=== PATIENT | female | born 1960 | race Caucasian/White ===

== ENCOUNTER 2023-08-27 09:13 | Emergency (ER) | payer BC, SELFPAY ==
--- NOTE | ~2023-08-27 | XR_ITS ---
EXAMINATION: XR KNEE, LEFT CLINICAL INFORMATION: Left knee pain. COMPARISON: None available. TECHNIQUE: Four views of the left knee. FINDINGS: Alignment is anatomic. Mild medial tibiofemoral cartilage space loss. Mild patellofemoral cartilage space loss. There are marginal osteophytes. No displaced fracture. There surgical clips in the posterior medial soft tissues. Moderate suprapatellar joint effusion. XR/XR knee LT 4V IMPRESSION: Mild osteoarthritis of the left knee. Moderate suprapatellar joint effusion.
[2023-08-27 09:17] VITALS: BP 166/50; PULSE 69; RESP 20; TEMP 35.8; O2SAT 100; BMI 36.0
--- NOTE | 2023-08-27 11:20 | ED_ITS ---
HPI - Extremity Injury (Lower) General Chief Complaint: Extremity Injury, Lower Stated Complaint: fall 08/25, knee pain Time Seen by Provider: 08/27/23 10:11 Source: patient, family and RN notes reviewed Mode of arrival: ambulatory Limitations: no limitations History of Present Illness ED Provider: Reyna Scott PA-C HPI Narrative: This is a 63-year-old female who presents emergency department with complaints of left knee pain status post mechanical fall which occurred yesterday. Patient states that while she was outside for of her dogs ran into her and she ultimately fell landing directly onto her knee. She denies hitting her head or loss of consciousness. She felt well prior to the fall. She has been able to put weight on her left knee. She has been taking ibuprofen, icing, elevating with some relief. Denies history of injury to her left knee in the past. No other complaints or concerns at this time. MD complaint: knee injury Onset (ago): day(s) Relieving factors: nothing Exacerbating factors: nothing Context: fall and direct blow Other symptoms: none Related Data Previous Rx's ?Medication ?Instructions ?Recorded acetaminophen 500 mg tablet 500 mg PO Q6H PRN pain #30 tabs 08/27/23 (Tylenol Extra Strength) ibuprofen 600 mg tablet 600 mg PO Q6H PRN pain #30 tabs 08/27/23 Allergies Allergy/AdvReac Type Severity Reaction Status Date / Time No Known Allergies Allergy Verified 08/27/23 09:21 Review of Systems Review of Systems: Yes all other systems are reviewed and are negative Constitutional: Constitutional: Reports as per [facility] Social History Social History Smoked in Last 30 Days: No Use of substances other than those prescribed or required for medical reasons: No Advance Directives: No Advance Directives Information Provided: No Do you have a plan to hurt others: No Plan Physical Exam Vital Signs: Vital Signs: Last Vital Signs Temp 98.0 F 08/27/23 12:53 Pulse 69 08/27/23 12:53 Resp 16 08/27/23 12:53 BP 126/45 L 08/27/23 12:53 Pulse Ox 96 08/27/23 12:53 O2 Del Method Room Air 08/27/23 12:53 BMI result Body Mass Index 36.0 Const: General: cooperative, comfortable and no acute distress Orientation/consciousness: patient oriented x3 Limitations: no limitations HEENT: Head: Yes normal to inspection, Yes normocephalic and Yes atraumatic Ears: hearing grossly normal bilaterally General nose exam: Normal external nose present Face and sinus: Yes normal facial exam Mouth: Normal oral and palatal mucosa present, oropharynx normal and moist mucous membranes Throat: Yes posterior oropharynx normal Eyes: General: appearance normal, both eyes and all related structures Eyelids: Yes eyelids normal Conjunctivae: conjunctivae normal Sclerae: sclerae normal Pupils: Equal, round and reactive pupils present EOM: EOMs intact bilaterally Neck: Neck: Yes normal visual inspection, Yes full ROM and Yes no lymphadenopathy Lymphatic: no lymphadenopathy noted Chest: Chest palpation & inspection: normal inspection of the chest Resp: Effort & Inspection: normal respiratory effort and able to speak in complete sentences Auscultation: clear to auscultation bilaterally, no crackles, no rales, no rhonchi and no wheezes Cardio: Rate: regular rate Rhythm: regular rhythm Heart sounds: S1 normal heart sound present and S2 normal heart sound present GI: Inspection: Yes normal to inspection Skin: General skin exam: no rashes or lesions noted Trauma: no lacerations or abrasions Wounds: no wounds Neuro: General: patient oriented x3 and moves all extremities Cranial nerves: Yes Equal, round and reactive pupils present Extrem: Other: Left knee, with tenderness palpation along the lateral joint line. With diffuse edema noted, range of motion is intact however with pain elicited. Negative anterior-posterior drawer, pain with valgus strain. Calf nontender. Strong DP pulse General: Yes normal to inspection Right upper extremity: normal to inspection Left upper extremity: normal to inspection Right lower extremity: normal to inspection Left lower extremity: normal to inspection Course Reevaluation(s) Reevaluation #1: X-ray revealing moderate joint effusion as well as arthritis, no bony abnormality. Placed in Dain wrap, and given crutches. Also given orthopedic referral. Given return precautions. Patient understands agrees with plan, discharged on ibuprofen and Tylenol. Stable for discharge Time: 12:44 Medical Decision Making Medical Decision Making MDM Narrative: This is a 63-year-old female who presents emergency department with complaints of left knee pain status post mechanical fall which occurred yesterday. On arrival, vital signs within normal limits. There has no head strike or LOC. Patient has tenderness palpation along the lateral joint line. Full range of motion. Differential diagnoses include fracture, contusion, sprain, strain. Differential Diagnosis Differential Diagnoses: The differential diagnosis associated with the presentation includes See above Radiology Impression Discussion of test interpretation with radiology: I have reviewed the radiologist's reading. Radiologist Impression: [address] [address] XRay Report Signed Patient: Karla Cruz MR#: [id number] : 1960 Acct:[id number] Age/Sex: 63 / F ADM Date: 08/27/23 Loc: HO.ED Attending Dr: Ordering Physician: Fiorella Allred DO Date of Service: 08/27/23 Procedure(s): XR knee LT 4V Accession Number(s): [id number] cc: Fiorella Allred DO; Balwinder New MD~ EXAMINATION: XR KNEE, LEFT CLINICAL INFORMATION: Left knee pain. COMPARISON: None available. TECHNIQUE: Four views of the left knee. FINDINGS: Alignment is anatomic. Mild medial tibiofemoral cartilage space loss. Mild patellofemoral cartilage space loss. There are marginal osteophytes. No displaced fracture. There surgical clips in the posterior medial soft tissues. Moderate suprapatellar joint effusion. XR/XR knee LT 4V IMPRESSION: Mild osteoarthritis of the left knee. Moderate suprapatellar joint effusion. Dictated By: Carol Ann Umanzor MD Procedures Orthopedic Splinting/Casting Injury #1: Side: left Upper Extremity Immobilizer: Dain wrap Lower Extremity Injury Location: knee Other Orthopedic Equipment: crutches Discharge Plan Discharge Clinical Impression: Contusion of knee, left Patient Disposition: Home, Self-Care Instructions: Contusion in Adults (ED), R.I.C.E. Treatment (ED) Additional Instructions: You were seen in the emergency department after injuring her left knee. Your x-ray shows mild arthritis as well as a joint effusion, which is swelling. You have no broken bones. Please rest, ice, elevate, and use Dain wrap. You may also use crutches or a cane as needed to offset the pressure you apply on your leg with walking. Watch for any new or worsening symptoms including but not limited to fevers, chills, increased redness, swelling, inability to bend your knee, if any of these occur, please return for re-evaluation. Follow-up with Orthopedics, call to make an appointment. You may also follow-up with your primary care physician visit. Prescriptions: New ibuprofen 600 mg tablet 600 mg PO Q6H PRN (Reason: pain) Qty: 30 0RF acetaminophen [Tylenol Extra Strength] 500 mg tablet 500 mg PO Q6H PRN (Reason: pain) Qty: 30 0RF Referrals: [facility] [place] [facility] [Provider Group] Interventions: ED Discharge Assessment Last Done: 08/27/23 12:53 Discharge Date/Time: 08/27/23 12:56 Print Language: Yakut
[2023-08-27 11:34] VITALS: BP 126/45; PULSE 69; RESP 16; TEMP 36.7; O2SAT 96
[2023-08-27 12:53] VITALS: BP 126/45; PULSE 69; RESP 16; TEMP 36.7; O2SAT 96
== END 2023-08-27 12:56 | disposition home or self-care (01) ==
PROVIDERS: Emergency Provider Emergency Medicine; PCP Family Medicine
DX: S80.02XA Contusion of left knee, initial encounter (principal); W18.30XA Fall on same level, unspecified, initial encounter; Y93.9 Activity, unspecified; Y92.9 Unspecified place or not applicable; Y99.9 Unspecified external cause status
CPT/HCPCS: 73564; 99283; 99284

== ENCOUNTER 2023-10-14 10:06 | Outpatient (AMB) | payer BC, SELFPAY ==
--- NOTE | 2023-10-14 10:07 | A.OFFVIS_ITS ---
Vital Signs 10/14/23 10:11 Height 5 ft 7 in Weight 230 lb BMI 36.0 Intake Visit Reasons: [employer]-Left knee pain-fell 08/26/23 Intake Note: Karla Juarez is a 63 year old female who presents to the office today for Left knee pain s/p Fall 08/26/23. The patient states that she tripped and fell while playing with her daughter's dogs. Patient states she has been having intermitt ent discomfort, no pain, but says it is manageable and feels 95% better since her injury. She wraps her knee with rio bandage and iced it daily and finds relief with this. She feels like she does not need to take medications to manage her pain. She denies any locking or giving way. Allergies No Known Allergies Allergy (Verified 10/14/23 10:11) Medication List - Last Reconciled 10/14/23 by Yamil Rodríguez MD acetaminophen (Tylenol Extra Strength) 500 mg PO Q6H PRN aspirin (Adult Low Dose Aspirin) 81 mg PO DAILY atorvastatin 80 mg PO DAILY dulaglutide (Trulicity) mg subcut ezetimibe 10 mg PO DAILY furosemide 40 mg PO DAILY insulin glargine U-300 conc (Toujeo SoloStar U-300 Insulin) units subcut insulin lispro (Humalog KwikPen (U-100) Insulin) subcut latanoprost 0.005% drps ophthalmic (eye) losartan 50 mg PO DAILY meclizine 25 mg PO TID PRN metformin 1,000 mg PO BID metoprolol tartrate 50 mg PO BID PFSH Social History Alcohol intake: never Patient Tobacco Use Status: Never used Tobacco service: No Current occupational status: employed Current occupation: [employer] Physical Exam Vital Signs: BMI result Body Mass Index 36.0 Const Other: Well-nourished well-developed very friendly female awake alert and oriented x3 in no acute distress Extrem Other: Bilateral lower extremity examination shows good capillary refill, no skin lesions noted, normal sensation light touch Left knee examination shows a minimal effusion, minimal crepitus with range of motion, negative Viki's test, no instability, mild tenderness to palpation over her medial collateral ligament. Results Reviewed Results Reviewed: X-rays of the patient's left knee views joint space narrowing no acute bony abnormalities Assessment & Plan Assessment & Plan (1) Left knee pain: Code(s): M25.562 - Pain in left knee Category: Medical Plan Ms. Cruz presents with intermittent left knee discomfort most likely due to a MCL sprain. At this point the patient's symptoms continue to improve with non operative treatments. She will continue activities as tolerated. She will follow up with me on an as-needed basis should her symptoms not plateau at an unacceptable level over the next few months. Feel free to call me at any time should questions regarding her orthopedic management arise. I spent 21 minutes in reviewing the patient's records and imaging studies, seeing the patient and documenting in the medical record. Medications: Discontinued ibuprofen Discontinued Reason: Stopped on Transfer 600 mg PO Q6H PRN 30 tabs 0RF pain Coding Level of Care Code New Pt Level 3 (74354) Diagnoses Left knee pain M25.562
[2023-10-14 10:11] VITALS: BMI 36.0
== END 2023-10-14 10:38 | disposition home or self-care (01) ==
PROVIDERS: PCP Family Medicine; Visit Provider Orthopaedic Surgery
DX: M25.562 Pain in left knee (principal)
CPT/HCPCS: 99203

== ENCOUNTER → 2023-10-14 10:06 | Outpatient (BNVA) | payer BC, SELFPAY | PROVIDERS: PCP Family Medicine; Visit Provider Orthopaedic Surgery ==